=== PATIENT | male | born 1990 | race American Indian/Alaskan Native ===

== ENCOUNTER 2019-10-18 14:21 | Emergency (ER) | payer SELFPAY ==
[2019-10-18 14:27] VITALS: BP 125/90
--- NOTE | 2019-10-18 15:38 | Emergency Department Report ---
Chief Complaint: Urogenital-Male Stated Complaint: URINATION PAIN/FEVER Time Seen by Provider: 10/18/19 15:33 - HPI History of Present Illness: 3-4 days of dysuria, no testicular pain or swelling - ROS Review of Systems: all systems reviewed and negative - Exam Vital Signs: Vital Signs 10/18/19 14:25 Temperature 98.6 F Pulse Rate 75 Respiratory 16 Rate Blood Pressure 125/90 O2 Sat by Pulse 99 Oximetry Physical Exam: AOx3 no acute distress no abd pain MSE screening note: Focused history and physical exam performed. Due to findings the following was ordered: ED Medical Decision Making - Medical Decision Making Pt given info for Dr rojas for STD treatment ED Disposition for MSE Clinical Impression: Urethritis Disposition: MED SCREENING EXAM-LEFT Is pt being admited?: No Does the pt Need Aspirin: No Condition: Stable Referrals: PRIMARY CARE, [Primary Care Provider] - 3-5 Days Forms: STI Treatment and Prevention Time of Disposition: 15:38
== END 2019-10-18 15:40 | disposition left against medical advice (07) ==
LOC: ED 14:21
DX: N34.2 Other urethritis (principal)
CPT/HCPCS: 99281